=== PATIENT | female | born 1945 | race Two or more races ===

== ENCOUNTER 2020-03-02 09:22 | Emergency (ER) | payer OTHER ==
[~2020-03-02] VITALS: Ht 167.6 cm; Wt 106.6 kg
[2020-03-02] MEDS ORDERED: DOXAZOSIN MESYLA2 MG PO (09:42)
[2020-03-02] MEDS ORDERED: ISOSORBIDE DINI30 MG PO (09:43)
[2020-03-02] MEDS ORDERED: CARVEDILOL25 M1 PO (09:45)
[2020-03-19] MEDS ORDERED: HYDRALAZINE HC100 MG (17:15)
[2020-03-19] MEDS ORDERED: ADALAT CC90 MG (17:16)
[2020-03-19] MEDS ORDERED: LASIX80 MG (17:16)
[2020-03-19] MEDS ORDERED: OMEPRAZOLE MAGN20 MG (17:16)
[2020-03-19] MEDS ORDERED: NEURONTIN800 MG (17:17)
[2020-03-19] MEDS ORDERED: KAPVAY0.1 MG (17:17)
[2020-03-19] MEDS ORDERED: VERIPRED 220 MG/5 ML (17:17)
[2020-03-19] MEDS ORDERED: ALDACTONE25 MG (17:17)
== END 2020-03-02 17:45 | disposition home or self-care (01) ==
LOC: ER 09:22
DX: I13.0 Hypertensive heart and chronic kidney disease with heart failure and stage 1 through stage 4 chronic kidney disease, or unspecified chronic kidney disease (principal); I50.9 Heart failure, unspecified; N18.4 Chronic kidney disease, stage 4 (severe); D63.8 Anemia in other chronic diseases classified elsewhere; J90 Pleural effusion, not elsewhere classified; Z20.828 Contact with and (suspected) exposure to other viral communicable diseases

== ENCOUNTER 2020-03-13 08:49 | Outpatient (CLI) | payer OTHER ==
[~2020-03-13 08:49] MED LIST: CARVEDILOL25 M1 PO; DOXAZOSIN MESYLA2 MG PO; ISOSORBIDE DINI30 MG PO
[2020-03-19] MEDS ORDERED: HYDRALAZINE HC100 MG (17:15)
[2020-03-19] MEDS ORDERED: LASIX80 MG (17:16)
[2020-03-19] MEDS ORDERED: OMEPRAZOLE MAGN20 MG (17:16)
[2020-03-19] MEDS ORDERED: ADALAT CC90 MG (17:16)
[2020-03-19] MEDS ORDERED: ALDACTONE25 MG (17:17)
[2020-03-19] MEDS ORDERED: VERIPRED 220 MG/5 ML (17:17)
[2020-03-19] MEDS ORDERED: KAPVAY0.1 MG (17:17)
[2020-03-19] MEDS ORDERED: NEURONTIN800 MG (17:17)
== END 2020-03-13 08:53 | disposition home or self-care (01) ==
LOC: LAB 08:49
PROVIDERS: ATTEND Internal Medicine Hematology & Oncology
DX: D63.1 Anemia in chronic kidney disease (principal); D63.8 Anemia in other chronic diseases classified elsewhere; N18.30 Chronic kidney disease, stage 3 unspecified